=== PATIENT | female | born 2000 | race Two or more races ===

== ENCOUNTER 2021-12-22 12:21 | Emergency (ER) | payer MEDICAID, OTHER ==
[~2021-12-22] VITALS: Ht 154.9 cm; Wt 68.0 kg
[2021-12-22 14:20] VITALS: BP 102/61
== END 2021-12-22 15:25 | disposition home or self-care (01) ==
LOC: ER 12:21
DX: S80.11XA Contusion of right lower leg, initial encounter (principal); W22.8XXA Striking against or struck by other objects, initial encounter; Y93.89 Activity, other specified; Y92.39 Other specified sports and athletic area as the place of occurrence of the external cause; Y99.8 Other external cause status
CPT/HCPCS: 73590

== ENCOUNTER 2022-09-14 09:17 | Emergency (ER) | payer MEDICAID ==
[~2022-09-14] VITALS: Ht 154.9 cm; Wt 73.0 kg
[2022-09-14 11:19] VITALS: BP 123/67
[2022-09-14 14:02] LABS: Urine Bacteria MANY /hpf (None Seen); Urine Blood Negative /uL (Negative); Urine Mucus FEW (None Seen); Urine Specific Gravity 1.021 (1.001-1.035); Urine WBC 388 /hpf (0 - 5)
[2022-09-14] MEDS ORDERED: ONDA-144 PO (14:51)
[2022-09-14] MEDS ORDERED: CEPH-510 PO (14:51)
[2022-09-14] MEDS ORDERED: ACET1CAP14 PO (14:59)
[2022-09-14] MEDS ORDERED: IBUPROFEN 600 MG TAB PO ONE (15:00)
[2022-09-14] MEDS ORDERED: cefTRIAXone SOD 1,000 MG VL IM ONE (15:00)
[2022-09-14] MEDS ORDERED: ONDANSETRON ODT 4 MG TAB PO ONE (15:00)
[2022-09-14] MEDS ORDERED: KETOROLAC TROMETH 30 MG/ML 1ML VIAL IM ONE (15:00)
== END 2022-09-14 15:20 | disposition home or self-care (01) ==
LOC: ER 09:17
DX: N39.0 Urinary tract infection, site not specified (principal); Z32.02 Encounter for pregnancy test, result negative
CPT/HCPCS: 76856; 81001; 81025; 99284; J0696; Q0162